=== PATIENT | female | born 1955 | race Hispanic/Latino ===

== ENCOUNTER 2018-10-18 13:08 | Outpatient (CLI) | payer MEDICARE ==
--- NOTE | 2018-10-21 13:58 | Mammography Report ---
BILATERAL DIGITAL SCREENING MAMMOGRAM WITH CAD INDICATION: Routine screening mammography. Status post right mastectomy with implant reconstruction i n 1986. TECHNIQUE: Digital bilateral 2D mammography was obtained in the craniocaudal and mediolateral obliq ue projections. This examination was interpreted with the benefit of Computer-Aided Detection analysi s. COMPARISON: 10/02/2013 FINDINGS: Breast Density: The left breast is heterogeneously dense, which may obscure small masses. A slightly irregular circumscribed right lower mass requires additional imaging. It measures 1 cm max imum and is new compared to the previous exam. No architectural distortion or suspicious calcificatio ns. The left breast is negative. IMPRESSION: Right mass requiring additional imaging. Recommend recall for ultrasound of the lower rig ht reconstructed breast. BI-RADS Category 0: Incomplete. Needs additional imaging evaluation and/or prior mammograms for reese rison. A "normal" or negative report should not discourage follow up or biopsy of a clinically significant f inding. A written summary of these findings will be mailed to the patient. The patient will be entered into a mammography reporting system which will generate a reminder letter for the patient's next appointmen t at the appropriate interval. The [employer] recommends yearly mammograms starting at age 40 and continuing as l [place] as a woman is in good health. Breast MRI is recommended for women with an approximate 20-25% or greater lifetime risk of breast cancer, including women with a strong family history of breast or ova bry cancer or who have been treated for Hodgkin's disease. Signer Name: Breezy Aguero MD Signed: 10/21/2018 1:54 PM Workstation Name: [id number]
== END 2018-10-18 13:09 | disposition home or self-care (01) ==
LOC: SPVWC 13:08
PROVIDERS: ATTEND Internal Medicine Hematology & Oncology
DX: Z12.31 Encounter for screening mammogram for malignant neoplasm of breast (principal)